=== PATIENT | male | born 1995 | race Caucasian/White ===

== ENCOUNTER 2021-04-16 16:55 | Emergency (ER) | payer OTHER, SELFPAY | END 2021-04-16 20:09 | disposition left against medical advice (07) | PROVIDERS: Emergency Provider Emergency Medicine; PCP Pediatrics | DX: H93.90 Unspecified disorder of ear, unspecified ear (principal) ==

== ENCOUNTER 2021-09-22 14:08 | Outpatient (REF) | payer MEDICAID, SELFPAY ==
[2021-09-22 14:46] LABS: COVID-19 Test Negative (Negative)
== END 2021-09-22 14:09 | disposition home or self-care (01) ==
LOC: HO.LAB 14:08
PROVIDERS: Visit Provider Internal Medicine
DX: Z20.822 Contact with and (suspected) exposure to COVID-19 (principal)
CPT/HCPCS: 36415; 87635; C9803

== ENCOUNTER 2021-10-21 15:30 | Outpatient (REF) | payer MEDICAID, SELFPAY ==
[2021-10-21 15:51] LABS: COVID-19 Test Negative (Negative); IDNOW Serial# 16C4AD1C
== END 2021-10-21 15:31 | disposition home or self-care (01) ==
LOC: HO.LAB 15:30
PROVIDERS: Visit Provider Internal Medicine
DX: Z20.822 Contact with and (suspected) exposure to COVID-19 (principal)
CPT/HCPCS: 36415; 87635; C9803

== ENCOUNTER 2021-11-17 11:09 | Outpatient (REF) | payer MEDICAID, SELFPAY ==
[2021-11-17 13:08] LABS: Binax Internal Control QC Valid; Binax Now Covid-19 Ag Negative (Negative)
== END 2021-11-17 11:10 | disposition home or self-care (01) ==
LOC: HO.LAB 11:09
PROVIDERS: Visit Provider Internal Medicine
DX: Z20.822 Contact with and (suspected) exposure to COVID-19 (principal)
CPT/HCPCS: C9803